=== PATIENT | female | born 1985 | race Caucasian/White ===

== ENCOUNTER 2017-02-07 05:11 | Inpatient (IN) | payer BC ==
[~2017-02-07] VITALS: Ht 158.8 cm; Wt 66.8 kg
[2017-02-07] MEDS ORDERED: OXYTOCIN 30U/ 0.9% NaCL 500ML 500 ML IV PRN (06:38)
[2017-02-07] MEDS ORDERED: OXYTOCIN 30U/ 0.9% NaCL 500ML 500 ML IV ONE (06:38)
[2017-02-07] MEDS ORDERED: CALCIUM CARBONATE 500 MG TAB.CHEW PO PRN (07:00)
[2017-02-07] MEDS ORDERED: ONDANSETRON 2MG/ML, 2ML IVPush PRN (07:00)
[2017-02-07] MEDS ORDERED: FENTANYL PF 100 MCG/2ML IVPush PRN (07:00)
[2017-02-07] MEDS ORDERED: FENTANYL PF 100 MCG/2ML IV PRN (07:00)
[2017-02-07] MEDS: LACTATED RINGERS 1,000 ML IV SCH ×4 (07:33→19:46)
[2017-02-07] MEDS ORDERED: MISOPROSTOL 200 MCG TABLET ONE (07:41)
[2017-02-07] MEDS ORDERED: OXYTOCIN 30U/ 0.9% NaCL 500ML 500 ML ONE (07:41)
[2017-02-07] MEDS ORDERED: NEWBORN KIT ONE (07:41)
[2017-02-07] MEDS ORDERED: LIDOCAINE 1%, 20ML ONE (07:41)
[2017-02-07] MEDS: PLEASE ENTER HEIGHT AND WEIGHT MC SCH ×4 (08:30→16:30)
[2017-02-07 08:52] VITALS: BP 119/84
[2017-02-07] MEDS ORDERED: ONDANSETRON 2MG/ML, 2ML ONE ×2 (10:09→21:51)
[2017-02-07] MEDS ORDERED: BUPIVACAINE 0.25% ONE ×2 (10:11→10:15)
[2017-02-07] MEDS ORDERED: FENTANYL/BUPIV./NS/PF 250 ML EPIDCONT ONE ×2 (10:11→10:15)
[2017-02-07] MEDS ORDERED: FENTANYL PF 100 MCG/2ML ONE ×3 (10:11→21:45)
[2017-02-07] MEDS ORDERED: LIDOCAINE/PF 1.5%-EPI 1:200K, 30ML ONE (10:15)
[2017-02-07] MEDS ORDERED: LIDOCAINE 2%, 10ML ONE (10:15)
[2017-02-07] MEDS: D5%-LACTATED RINGERS 1,000 ML IV SCH ×2 (19:46→22:38)
[2017-02-07] MEDS ORDERED: METOCLOPRAMIDE 5 MG/ML, 2ML ONE (21:31)
[2017-02-07] MEDS ORDERED: SODIUM CITRATE/CITRIC ACID 30 ML UDC ONE (21:31)
[2017-02-07] MEDS ORDERED: LACTATED RINGERS 1,000 ML IV SCH ×2 (21:42→23:06)
[2017-02-07] MEDS ORDERED: PHENYLEPHRINE 10 MG/ML ONE (21:51)
[2017-02-07] MEDS ORDERED: OXYTOCIN 10 UNITS/ML, 1ML ONE (21:51)
[2017-02-07] MEDS ORDERED: CEFAZOLIN 1,000 MG ONE (21:51)
[2017-02-07] MEDS ORDERED: OXYcodone/APAP 5/325MG TABLET PO PRN (22:00)
[2017-02-07] MEDS ORDERED: ONDANSETRON 2MG/ML, 2ML IV PRN (22:00)
[2017-02-07] MEDS ORDERED: ACETAMINOPHEN 325 MG TABLET PO PRN ×2 (22:00)
[2017-02-07] MEDS ORDERED: LACTATED RINGERS 1,000 ML IVBOLUS ONE (22:00)
[2017-02-07] MEDS ORDERED: MISOPROSTOL 200 MCG TABLET PR PRN (22:00)
[2017-02-07] MEDS ORDERED: morphine SULFATE 10 MG/ML, 1ML IVPush PRN ×2 (22:00)
[2017-02-07] MEDS ORDERED: morphine SULFATE/PF 0.5 MG/ML, 10ML ONE (22:13)
[2017-02-07] MEDS ORDERED: FENTANYL/BUPIV./NS/PF 250 ML EPIDCONT SCH (23:06)
[2017-02-07] MEDS ORDERED: LACTATED RINGERS 1,000 ML IVBOLUS PRN (23:30)
[2017-02-08 00:50] VITALS: BP 103/66
[2017-02-08] MEDS: LACTATED RINGERS 1,000 ML IV SCH ×7 (01:29→21:37)
[2017-02-08] MEDS: OXYTOCIN 30U/ 0.9% NaCL 500ML 500 ML IV SCH ×3 (01:30→17:37)
[2017-02-08] MEDS: KETOROLAC 30 MG/1 ML IV SCH ×4 (01:41→21:31)
[2017-02-08] MEDS ORDERED: DIPHENHYDRAMINE 50 MG/ML, 1ML IV PRN (02:00)
[2017-02-08] MEDS ORDERED: HYDROmorphone 1 MG/ML, 1ML IVPush PRN (02:00)
[2017-02-08 04:45] VITALS: BP 103/66
[2017-02-08] MEDS: OXYcodone/APAP 5/325MG TABLET PO PRN ×4 (06:32→22:58)
[2017-02-08 07:45] VITALS: BP 92/56
[2017-02-08] MEDS ORDERED: PRENATAL VIT/IRON/FA 1 EACH TABLET ONE (07:48)
[2017-02-08] MEDS: PRENATAL VIT/IRON/FA 1 EACH TABLET PO SCH (07:53)
[2017-02-08] MEDS: DOCUSATE 100 MG CAPSULE PO PRN ×2 (07:53→21:31)
[2017-02-08 12:19] VITALS: BP 89/58
[2017-02-08 16:10] VITALS: BP 88/54
[2017-02-08 19:57] VITALS: BP 94/58
[2017-02-08] MEDS: SIMETHICONE 80 MG CHEW TAB PO PRN (21:31)
[2017-02-09] MEDS: LACTATED RINGERS 1,000 ML IV SCH ×2 (03:37→05:37)
[2017-02-09] MEDS: OXYTOCIN 30U/ 0.9% NaCL 500ML 500 ML IV SCH (03:37)
[2017-02-09] MEDS: KETOROLAC 30 MG/1 ML IV SCH ×3 (03:44→16:00)
[2017-02-09] MEDS: OXYcodone/APAP 5/325MG TABLET PO PRN ×5 (04:49→23:36)
[2017-02-09 07:30] VITALS: BP 107/61
[2017-02-09] MEDS: PRENATAL VIT/IRON/FA 1 EACH TABLET PO SCH (09:00)
[2017-02-09] MEDS: DOCUSATE 100 MG CAPSULE PO PRN ×2 (10:09→19:14)
[2017-02-09 19:10] VITALS: BP 102/66
[2017-02-09] MEDS: IBUPROFEN 600 MG TABLET PO PRN (23:36)
[2017-02-10] MEDS: SIMETHICONE 80 MG CHEW TAB PO PRN (03:43)
[2017-02-10 07:00] VITALS: BP 93/59
[2017-02-10] MEDS: PRENATAL VIT/IRON/FA 1 EACH TABLET PO SCH (07:52)
[2017-02-10] MEDS: OXYcodone/APAP 5/325MG TABLET PO PRN ×2 (07:53→13:13)
[2017-02-10] MEDS: DOCUSATE 100 MG CAPSULE PO PRN (07:53)
[2017-02-10] MEDS: IBUPROFEN 600 MG TABLET PO PRN (07:53)
[2017-02-10] MEDS ORDERED: OXYC-302 PO (09:44)
[2017-02-10] MEDS ORDERED: IBUP-1222 PO (09:46)
[2017-02-10] MEDS ORDERED: DOCU-30 PO (09:48)
== END 2017-02-10 13:46 | disposition home or self-care (01) | DRG 766 ==
LOC: LDOP 05:11 → LDIP 06:38 → 2NW 02-08 00:17
PROVIDERS: ADMIT Obstetrics & Gynecology; ATTEND Obstetrics & Gynecology
PROC: 10D00Z1 Extraction of Products of Conception, Low, Open Approach (ICD-10-PCS; principal; 2017-02-07)
DX: O62.0 Primary inadequate contractions (principal); Z37.0 Single live birth; O48.0 Post-term pregnancy; Z3A.40 40 weeks gestation of pregnancy
CPT/HCPCS: 36415; 85025; 86850; 86900; 89060; J0690; J1885; J2274; J2405; J3010; J3490; J2370; J2590; J7120; J7121; Q0114